=== PATIENT | female | born 2000 | race Caucasian/White ===

== ENCOUNTER 2024-06-12 06:24 | Day surgery (SDC) | payer OTHER, SELFPAY | END 2024-06-12 09:41 | disposition home or self-care (01) | LOC: GI 06:24 | PROVIDERS: ATTENDING PHYSICIAN Surgery | DX: K62.5 Hemorrhage of anus and rectum (principal); K64.4 Residual hemorrhoidal skin tags | CPT/HCPCS: 45378 ==